=== PATIENT | male | born 1980 | race African-American/Black ===

== ENCOUNTER 2017-06-26 12:07 | Emergency (ER) | payer SELFPAY ==
[2017-06-26] MEDS ORDERED: methylPREDNISolone Acetate 40 mg/ml Vial ONE (13:06)
== END 2017-06-26 13:16 | disposition home or self-care (01) ==
LOC: NAV ERS 12:07
DX: L50.0 Allergic urticaria (principal); F32.9 Major depressive disorder, single episode, unspecified; I10 Essential (primary) hypertension; F17.210 Nicotine dependence, cigarettes, uncomplicated
CPT/HCPCS: 96372; J1030

== ENCOUNTER 2024-04-29 14:39 | Emergency (ER) | payer SELFPAY | END 2024-04-29 15:10 | disposition home or self-care (01) | LOC: NAV ERS 14:39 | DX: M10.9 Gout, unspecified (principal); I10 Essential (primary) hypertension; F17.210 Nicotine dependence, cigarettes, uncomplicated | CPT/HCPCS: 99283 ==

== ENCOUNTER 2025-03-26 20:21 | Emergency (ER) | payer OTHER, SELFPAY | END 2025-03-26 21:20 | disposition home or self-care (01) | LOC: NAV ERS 20:21 | DX: M70.21 Olecranon bursitis, right elbow (principal); I10 Essential (primary) hypertension; F17.210 Nicotine dependence, cigarettes, uncomplicated | CPT/HCPCS: 99283 ==